=== PATIENT | female | born 1995 | race Two or more races ===

== ENCOUNTER 2025-05-07 17:46 | Emergency (ER) | payer SELFPAY ==
[2025-05-07] MEDS ORDERED: Naproxen 500 MG TAB ONE (18:21)
[2025-05-07 18:47] LABS: Glucose, Urine (Dipstick) Negative (Negative); Leukocyte Negative (Negative); Protein, Urine (Dipstick) Negative (Neg-Trace); Specific Gravity, Urine Less/Equal 1.005 (1.005-1.030)
[2025-05-07 18:50] LABS: Pregnancy Test - Urine (BHCG) Negative (Negative); Pregu Control Background? CLEAR/WHITE (CLR/WHITE); Pregu Control Bar Appear? YES (CONTROL BAR)
[2025-05-07 18:53] LABS: CAUTI Indications for Culture Pelvic or flank pain; RBC/HPF None Seen HPF (0-3); WBC/HPF 0-3 HPF (0-3)
[2025-05-07 18:54] LABS: Bacteria/HPF Rare-Few HPF (None Seen); Urine Culture Reflex No No
== END 2025-05-07 18:58 | disposition home or self-care (01) ==
LOC: MADERS 17:46
DX: J32.9 Chronic sinusitis, unspecified (principal); B97.89 Other viral agents as the cause of diseases classified elsewhere
CPT/HCPCS: 81001; 81025; 87426; 99283